=== PATIENT | male | born 1950 | race Caucasian/White ===

== ENCOUNTER 2018-01-19 03:45 | Emergency (ER) | payer MEDICARE, OTHER ==
--- NOTE | 2018-01-19 03:56 | ED ---
HPI Chest Pain - HPI Summary HPI Summary: A 67 y/o M SHER presents to ED with c/o acute, mid-sternal CP onset 0100 this date that woke him from sleep, which spontaneously resolved after approx 30 minutes. Pain described as sharp. Associated sx: diaphoresis, nausea, dizziness. He notes feeling fine when he went to sleep. 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 PMHx: GERD. Denies HTN, DM. Non-smoker. FHx: father had DE in his 60s. This is Nelsy matias, documenting for attending Dr. Mynor MD. - History of Current Complaint Chief Complaint: EDChestPainROMI Time Seen by Provider: 01/19/18 03:50 Hx Obtained From: Patient, Family/Spooler Operator - present Onset/Duration: Started Hours Ago, Atraumatic, Resolved Timing: Intermittent, Lasting Minutes - 30 mins Initial Severity: Severe Current Severity: None Pain Intensity: 0 Pain Scale Used: 0-10 Numeric Chest Pain Location: Mid Sternal Character: Sharp/Stabbing Alleviating Factor(s): Spontaneous Resolution Associated Signs and Symptoms: Positive: Dizziness, Diaphoresis, Nausea - Allergy/Home Medications Allergies/Adverse Reactions: Allergies Allergy/AdvReac Type Severity Reaction Status Date / Time carbamazepine [From Tegretol] Allergy See Comment Verified 01/19/18 03:48 Home Medications: Home Medications Finasteride [Proscar] 5 mg PO DAILY 01/19/18 [History Confirmed 01/19/18] Lipitor 10 MG* 10 mg PO DAILY 01/19/18 [History Confirmed 01/19/18] Tamsulosin HCl [Flomax] 0.4 mg PO DAILY 01/19/18 [History Confirmed 01/19/18] PMH/Surg Hx/FS Hx/Imm Hx Previously Healthy: No Endocrine/Hematology History: Denies: Hx Diabetes Cardiovascular History: Denies: Hx Hypertension GI History: Reports: Hx Gastroesophageal Reflux Disease Infectious Disease History: No Infectious Disease History: Denies: Traveled Outside the [place] in Last 30 Days - Family History Known Family History: Positive: Cardiac Disease - father, [place] - Social History Occupation: Retired Lives: With Family Hx Tobacco Use: No Review of Systems Positive: Skin Diaphoresis Positive: Chest Pain Positive: Nausea Neurological: Other - dizziness All Other Systems Reviewed And Are Negative: Yes Physical Exam - Summary Physical Exam Summary: Appearance: Well-appearing, Well-nourished, lying in bed comfortably Skin: Warm, dry, no obvious rash Eyes: sclera anicteric, no conjunctival pallor ENT: mucous membranes moist, pharynx appears normal Neck: Supple, nontender Respiratory: Clear to auscultation, no signs of respiratory distress Cardiovascular: Normal S1, S2. No murmurs. Normal distal pulses in tibial and radial bilaterally. Abdomen: Soft, nontender, normal active bowel sounds present Musculoskeletal: Normal, Strength/ROM Intact Neurological: A&Ox3, awake and alert, mentation is normal, speech is fluent and appropriate Psychiatric: affect is normal, does not appear anxious or depressed Triage Information Reviewed: Yes Vital Signs On Initial Exam: Initial Vitals Temp Pulse Resp BP Pulse Ox 97.3 F 57 16 149/70 99 01/19/18 03:46 01/19/18 03:46 01/19/18 03:46 01/19/18 03:46 01/19/18 03:46 Vital Signs Reviewed: Yes Diagnostics - Vital Signs Vital Signs Temp Pulse Resp BP Pulse Ox 01/19/18 03:46 97.3 F 57 16 149/70 99 - Laboratory Result Diagrams: 01/19/18 04:05 01/19/18 04:05 Lab Statement: Any lab studies that have been ordered have been reviewed, and results considered in the medical decision making process. - Radiology CXR Xray Interpretation: No Acute Changes - Negative Radiology Interpretation Completed By: ED Physician - Additional Comments Diagnostic Additional Comments: EKG at 0346: Sinus tad at 58 bpm. Left anterior fascicular block. RSR' in V1 or V2, right VCD or RVH, Minimal ST elevation, anterior leads. EKG at 0546: No significant changes from previous. No STEMI. Re-Evaluation - Re-Evaluation 1 Re-Evaluation Time: 05:29 Comment: Discussing results with pt. Discharge - Sign-Out/Discharge Documenting (check all that apply): Sign-Out Patient Signing out patient TO: Chet Ospina - pending 2nd trop - Discharge Plan Referrals: Anamaria Rios MD [Primary Care Provider] -
[2018-01-19 04:12] LABS: ABS Basophils 0 10^3/ul (0-0.2); ABS Eosinophils 0.3 10^3/ul (0-0.6); ABS Lymphocytes 1.6 10^3/ul (1.0-4.8); ABS Monocytes 0.6 10^3/ul (0-0.8); ABS Neutrophils 4.6 10^3/ul (1.5-7.7); ABS Nucleated RBC 0 10^3/ul; Eosinophil % 4.2 % (0-6); Hematocrit 43 % (42-52); Hemoglobin 15.1 g/dl (14.0-18.0); Lymphocyte % 22.4 % (25-47); Mean Corpuscular HGB Conc 35 g/dl (31-36); Mean Corpuscular Hemoglobin 30 pg (27-31); Mean Corpuscular Volume 86 fL (80-94); Mean Platelet Volume 7.1 um3 (7.4-10.4); Nucleated Red Blood Cells % 0; Platelet Count 178 10^3/ul (150-450); Red Blood Count 5.05 10^6/ul (4.00-5.40); Red Cell Distribution Width 14 % (10.5-15); White Blood Count 7.1 10^3/ul (3.5-10.8)
[2018-01-19 04:28] LABS: EGFR Non-African American 65.8 (>60)
[2018-01-19] MEDS ORDERED: Ondansetron ODT TAB* 4 MG SL ONE ×2 (05:38→06:34)
[2018-01-19] MEDS ORDERED: Azithromycin TAB* 250 MG PO ONE (06:33)
[2018-01-19] MEDS ORDERED: metroNIDAZOLE TAB* 250 MG PO ONE (06:33)
[2018-01-19] MEDS ORDERED: cefTRIAXone VIAL(*) 250 MG VIAL IM ONE (06:33)
--- NOTE | 2018-01-19 07:04 | ED ---
Progress - Results/Orders Results/Orders: repeat trop results back at 0.00. - EKG/XRAY/CT Comments: EKG taken this morning similar with EKG from 2016 Re-Evaluation - Re-Evaluation 1 Re-Evaluation Time: 05:29 Comment: Discussing results with pt. Second Eval Re-Evaluation Time: 08:57 Change: Unchanged Comment: discussing discharge, results. Course/Dx - Diagnoses Provider Diagnoses: Chest pain - Provider Notifications Discussed Care Of Patient With: Joseluis Marquis Time Discussed With Above Provider: 07:20 Instructed by Provider To: Other - Asked dr. Marquis to take a look at the EKG. Discharge - Sign-Out/Discharge Documenting (check all that apply): Patient Departure - discharge, Receiving Sign-Out Receiving patient FROM: Oral Lowe - troponin - Discharge Plan Condition: Stable Disposition: HOME Patient Education Materials: Chest Pain (ED) Referrals: Anamaria Rios MD [Primary Care Provider] - 3 Days Additional Instructions: Return to the emergency department for any new or worsening symptoms. Follow up with your primary care physician and your mortuary beautician within the next 3 days. - Billing Disposition and Condition Condition: STABLE Disposition: Home Consult Consult: 0739: Dr. Marquis, 2nd troponin negative, recommends discharge.
--- NOTE | 2018-01-19 07:24 | RAD ---
INDICATION: Chest pain COMPARISON: None TECHNIQUE: An AP portable view obtained at 0405 hours is submitted. FINDINGS: Bones/Soft Tissues: There are no acute bony findings. Cardiomediastinal: The cardiomediastinal silhouette is normal. Lungs: There are no infiltrates. Pleura: There are no pleural effusions. Other: None IMPRESSION: NO ACTIVE DISEASE. R1
[2018-01-19 08:51] VITALS: BP 111/62
== END 2018-01-19 09:50 | disposition home or self-care (01) ==
LOC: ED 03:45
DX: R07.9 Chest pain, unspecified (principal); Z82.49 Family history of ischemic heart disease and other diseases of the circulatory system; K21.9 Gastro-esophageal reflux disease without esophagitis; I44.4 Left anterior fascicular block
CPT/HCPCS: 36415; 71045; 80053; 84484; 85025; 86141; 93005; 96372; 99283; A9270-GY

== ENCOUNTER 2022-01-16 11:47 | Observation (INO) ==
[2022-01-16 12:19] LABS: ABS Eosinophils 0.3 10^3/ul (0-0.6); ABS Lymphocytes 1.5 10^3/ul (1.0-4.8); ABS Monocytes 0.8 10^3/ul (0-0.8); ABS Neutrophils 4.8 10^3/ul (1.5-7.7); Eosinophil % 4.5 %; Hematocrit 42 % (42-52); Hemoglobin 14.1 g/dL (14.0-18.0); Lymphocyte % 20.1 %; Mean Corpuscular HGB Conc 33 g/dL (31-36); Mean Corpuscular Hemoglobin 29 pg (27-31); Mean Corpuscular Volume 87 fL (80-94); Mean Platelet Volume 7.3 fL (7.4-10.4); Platelet Count 182 10^3/uL (150-450); Red Blood Count 4.87 10^6 /uL (4.18-5.48); Red Cell Distribution Width 14 % (10-15); White Blood Count 7.4 10^3/uL (3.5-10.8)
[2022-01-16] MEDS ORDERED: Iohexol 350 (CONTRAST) 500 ML MDV IV ONE (12:19)
[2022-01-16 12:55] LABS: Activated Partial Thrombo Time 33.4 seconds (26.0-38.0); INR 0.9 (0.89-1.11)
[2022-01-16 13:04] LABS: Albumin 3.9 g/dL (3.2-5.2); Albumin/Globulin Ratio 1.4 (1-3); Calcium 8.6 mg/dL (8.6-10.3); Globulin 2.8 g/dL (2-4); HDL Cholesterol 59.8 mg/dL; Potassium 4.5 mmol/L (3.5-5.0); Total Bilirubin 0.6 mg/dL (0.2-1.0); Total Protein 6.7 g/dL (6.4-8.9); eGFR CKD-EPI 74.3 (>60)
[2022-01-16] MEDS: Enoxaparin 40 MG/0.4 ML SYR SUBCUT SCH (19:09)
[2022-01-17 15:59] VITALS: BP 143/55
[2022-01-17] MEDS: Enoxaparin 40 MG/0.4 ML SYR SUBCUT SCH (17:13)
== END 2022-01-17 16:45 | disposition home or self-care (01) ==
LOC: ED 11:47 → INTOOBSV 14:23 → EDHOLD 14:23 → MEDTELE 21:46
PROVIDERS: ADMIT Internal Medicine; ATTEND Internal Medicine